=== PATIENT | female | born 1995 | race Hispanic/Latino ===

== ENCOUNTER 2016-11-09 14:21 | Emergency (ER) | payer SELFPAY ==
[2016-11-09] MEDS ORDERED: TYLENOL PO ONE (19:16)
[2016-11-09] MEDS ORDERED: TYLENOL ONE (19:17)
[2016-11-09] MEDS ORDERED: MORPHINE IM ONE (20:09)
[2016-11-09] MEDS ORDERED: ZOFRAN ODT PO ONE (20:09)
[2016-11-09] MEDS ORDERED: ZOFRAN ONE (20:13)
[2016-11-09] MEDS ORDERED: ZOFRAN IM ONE (20:14)
--- NOTE | 2016-11-09 21:16 | Cat Scan Report ---
FINAL REPORT EXAM: CT HEAD/BRAIN WO CON HISTORY: head trauma, laceration TECHNIQUE: CT was performed from the foramen magnum through the vertex in the axial plane without the use of intravenous contrast. PRIORS: None. FINDINGS: The guzman/white matter attenuation pattern is normal. There is no mass lesion or mass effect. There are no abnormal extra-axial fluid collections. There is no evidence of acute intracranial hemorrhage or infarct. The ventricles are of normal size and configuration. The skull and orbits are unremarkable. The visualized paranasal sinuses are clear. IMPRESSION: Normal CT of the head.
[2016-11-09] MEDS ORDERED: TRIPLE ANTIBIOTIC TP ONE ×2 (21:30→21:32)
--- NOTE | 2016-11-09 21:55 | Emergency Department Report ---
ED Laceration HPI - HPI Chief Complaint: Wound/Laceration Stated Complaint: LEFT EAR INJURY Occurred When: Today Location: Head (left earlobe) Severity: mild Tetanus Status: Up to Date Laceration Symptoms: Yes Foreign Body Sensation, Yes Pain, No Numbness, No Weakness Other History: 21 year old female presents to ED with left ear laceration after mechanical fall out of bed and hitting head today. patient states she fell out of bed because the blow up mattress was not fully inflated. patient denies LOC, dizziness, headache, syncope. patient is stable, neurologically intact and in no acute distress. ED Review of Systems ROS: Stated complaint: LEFT EAR INJURY Other details as noted in HPI Constitutional: denies: chills, fever Eyes: denies: eye pain, eye discharge, vision change ENT: denies: ear pain, throat pain Respiratory: denies: cough, shortness of breath, wheezing Cardiovascular: denies: chest pain, palpitations Endocrine: no symptoms reported Gastrointestinal: denies: abdominal pain, nausea, diarrhea Genitourinary: denies: urgency, dysuria, discharge Musculoskeletal: denies: back pain, joint swelling, arthralgia Skin: denies: rash, lesions Neurological: denies: headache, weakness, numbness, paresthesias, confusion, abnormal gait, vertigo Psychiatric: denies: anxiety, depression Hematological/Lymphatic: denies: easy bleeding, easy bruising ED Past Medical Hx - Past Medical History Previous Medical History?: No Hx Asthma: Yes Additional medical history: heart murmur - Social History Smoking Status: Current Every Day Smoker - Medications Home Medications: Home Medications Medication Instructions Recorded Confirmed Last Taken Type Clindamycin [Clindamycin CAP] 300 mg PO Q8H #9 cap 11/09/16 Unknown Rx Meloxicam [Mobic] 7.5 mg PO QDAY #3 tablet 11/09/16 Unknown Rx Laceration Physical Exam - Exam General: Vital signs noted. No distress. Alert and acting appropriately. Wound Length (cm): 2 (left ear lobe) Laceration Location: Head Laceration Exam: Yes Foreign Body (patient has earring still lodged in earlobe) , Yes Normal Distal CMS, No Exposed Tendon, Vessel, or Nerve, No Tendon Injury ED Course Vital Signs 11/09/16 15:50 Temperature 98.6 F Pulse Rate 68 Respiratory 16 Rate Blood Pressure 130/79 O2 Sat by Pulse 100 Oximetry - Laceration /Wound Repair Left Ear Wound Location: face (left ear lobe) Wound Length (cm): 2 Wound's Depth, Shape: superficial Wound Explored: clean Irrigated w/ Saline (ccs): 50 Betadine Prep?: Yes Anesthesia: 1% Lidocaine Volume Anesthetic (ccs): 5 Wound Debrided: minimal Wound Repaired With: sutures Suture Size/Type: 6:0, proline Number of Sutures: 3 Layer Closure?: No Sterile Dressing Applied?: Yes Progress: patient tolerated well. earring removed from earlobe without complications. bleeding well controlled. ED Medical Decision Making - Radiology Data Radiology results: report reviewed CT brain: Normal examination per radiologist. Critical care attestation.: If time is entered above; I have spent that time in minutes in the direct care of this critically ill patient, excluding procedure time. ED Disposition Clinical Impression: Ear lobe laceration Qualifiers: Encounter type: initial encounter Laterality: left Qualified Code(s): S01.312A - Laceration without foreign body of left ear, initial encounter Disposition: TO HOME OR SELFCARE Is pt being admited?: No Does the pt Need Aspirin: No Condition: Stable Instructions: Suture Care (ED) Additional Instructions: Please return to ED or urgent care to get sutures removed within 4-5 days. Prescriptions: Clindamycin [Clindamycin CAP] 300 mg PO Q8H #9 cap Meloxicam [Mobic] 7.5 mg PO QDAY #3 tablet Referrals: PRIMARY CARE, [Primary Care Provider] - 3-5 Days Forms: Work/School Release Form(ED)
[2016-11-09 22:17] VITALS: BP 120/77
== END 2016-11-09 21:25 | disposition home or self-care (01) ==
LOC: ED 14:21
DX: S01.322A Laceration with foreign body of left ear, initial encounter (principal); F17.210 Nicotine dependence, cigarettes, uncomplicated; W06.XXXA Fall from bed, initial encounter; Y93.89 Activity, other specified; Y92.89 Other specified places as the place of occurrence of the external cause; Y99.8 Other external cause status
CPT/HCPCS: 12051; 70450; 81025; 96372; 99284; J2270; J2405; A6250

== ENCOUNTER 2016-11-23 18:34 | Emergency (ER) | payer OTHER ==
[2016-11-23 19:55] VITALS: BP 119/78
--- NOTE | 2016-11-23 20:23 | Emergency Department Report ---
HPI - General Chief Complaint: Laceration/Recheck/Suture Time Seen by Provider: 11/23/16 20:11 - HPI HPI: 21-year-old female presents today to get sutures removed from her left ear. Patient states that she was seen at [facility] on the and 3 sutures were put in. Denies drainage or bleeding. Denies any signs of infection. Denies fever, chills, nausea, vomiting, chest pain, shortness of breath, abdominal pain. ED Past Medical Hx - Past Medical History Previous Medical History?: Yes Hx Asthma: Yes Additional medical history: heart murmur - Surgical History Past Surgical History?: No - Social History Smoking Status: Former Smoker Substance Use Type: Alcohol - Medications Home Medications: Home Medications Medication Instructions Recorded Confirmed Last Taken Type Clindamycin [Clindamycin CAP] 300 mg PO Q8H #9 cap 11/09/16 Unknown Rx Meloxicam [Mobic] 7.5 mg PO QDAY #3 tablet 11/09/16 Unknown Rx ED Review of Systems ROS: Stated complaint: SUTURE REMOVAL Other details as noted in HPI Constitutional: denies: chills, fever, malaise Eyes: denies: eye pain ENT: denies: ear pain, throat pain, congestion Respiratory: denies: cough, shortness of breath, wheezing Cardiovascular: denies: chest pain, palpitations Endocrine: no symptoms reported Gastrointestinal: denies: abdominal pain, nausea, vomiting Skin: denies: rash, pruritus Neurological: denies: headache, weakness, numbness, paresthesias Physical Exam - Physical Exam Vital Signs: Vital Signs 11/23/16 19:49 Temperature 98.2 F Pulse Rate 64 Respiratory 20 Rate Blood Pressure 119/78 O2 Sat by Pulse 99 Oximetry Physical Exam: GENERAL: The patient is well-developed and well-nourished. Patient is in NAD. HEAD: Normocephalic. Atraumatic. EARS: Well-healed laceration noted medial to the left auricle, [address] NECK: Supple, nontender, without lymphadenopathy. No meningitic signs are noted. CHEST/LUNGS: Clear to auscultation throughout. HEART/CARDIOVASCULAR: Regular rate and rhythm. No murmurs, rubs or gallops. ABDOMEN: Abdomen is soft, nontender. Bowel sounds normoactive. No guarding or rebound tenderness. EXTREMITIES: No cyanosis, clubbing or edema. Peripheral pulses intact. Capillary refill less than 2 seconds. NEURO: Alert and oriented x 3. Normal gait. ED Course Vital Signs 11/23/16 19:49 Temperature 98.2 F Pulse Rate 64 Respiratory 20 Rate Blood Pressure 119/78 O2 Sat by Pulse 99 Oximetry - Procedure Description Procedures done: The wound demonstrates no evidence of infection with adequate tensile strength at the wound margins at this time to warrant suture removal. Sutures were removed individually using and forceps, with a total of 3 sutures removed. Re-examination of the wound following the procedure reveals no evidence of any retained foreign bodies and no dehiscence. Wound care precautions were given to the patient verbally. ED Medical Decision Making - Lab Data Vital Signs 11/23/16 19:49 Temperature 98.2 F Pulse Rate 64 Respiratory 20 Rate Blood Pressure 119/78 O2 Sat by Pulse 99 Oximetry - Medical Decision Making 21-year-old female presents today for suture removal. 3 sutures were removed using scissors and forceps. Patient tolerated procedure well. Wound care instructions provided.Patient is in no acute distress at this time. She will be discharged home and is encouraged to follow up with a primary care provider. She is encouraged to return to the emergency room for any worsening symptoms. Critical care attestation.: If time is entered above; I have spent that time in minutes in the direct care of this critically ill patient, excluding procedure time. ED Disposition Clinical Impression: Encounter for removal of sutures Disposition: DC-01 TO HOME OR SELFCARE Is pt being admited?: No Does the pt Need Aspirin: No Condition: Stable Instructions: Suture Removal (ED) Additional Instructions: Follow-up with primary care provider. Return to the emergency department if symptoms worsen. Referrals: [facility] [Outside] - 3-5 Days Forms: Work/School Release Form(ED), Accompanied Note Time of Disposition: 20:23
== END 2016-11-23 20:27 | disposition home or self-care (01) ==
LOC: ED 18:34
DX: S01.312D Laceration without foreign body of left ear, subsequent encounter (principal); J45.909 Unspecified asthma, uncomplicated; Z87.891 Personal history of nicotine dependence; X58.XXXD Exposure to other specified factors, subsequent encounter; Y93.89 Activity, other specified; Y99.8 Other external cause status; Y92.89 Other specified places as the place of occurrence of the external cause